=== PATIENT | male | born 1970 | race Caucasian/White ===

== ENCOUNTER 2019-07-28 11:34 | Emergency (ER) | payer OTHER ==
[~2019-07-28] VITALS: Ht 177.8 cm; Wt 186.5 kg
[~2019-07-28 11:34] MED LIST: AMLODIPINE5 MG PO; ARTIF TEARS OS; ATENOLOL50 MG PO; CIPRO500 MG OR; LACRI-LUBE OS; LORTAB 7.5 OR; LORTAB5 OR; MEDDOSEPAK OR; NO HOME MEDS; OMNICEF300 MG OR; PEPCID20 MG OR; PREDNISONE5 MG OR; SULFACETAMID10 % EX; ULTRAM50 M1 OR; ULTRAM50 M1 PO; ULTRAM50 MG OR; VALTREX1 GM OR
[2019-07-28] MEDS ORDERED: PROZAC20 MG PO (11:43)
[2019-07-28] MEDS ORDERED: LOSARTAN POTASS50 MG PO (11:43)
[2019-07-28 14:06] VITALS: BP 141/93
== END 2019-07-28 14:12 | disposition home or self-care (01) | DRG 563 ==
LOC: ED 11:34
DX: S86.912A Strain of unspecified muscle(s) and tendon(s) at lower leg level, left leg, initial encounter (principal); S70.02XA Contusion of left hip, initial encounter; I10 Essential (primary) hypertension; Y35.811A Legal intervention involving manhandling, law enforcement official injured, initial encounter; Y93.89 Activity, other specified; Y92.149 Unspecified place in prison as the place of occurrence of the external cause

== ENCOUNTER 2019-09-20 19:46 | Emergency (ER) | payer OTHER ==
[~2019-09-20] VITALS: Ht 177.8 cm; Wt 187.4 kg
[~2019-09-20 19:46] MED LIST changes: +LOSARTAN POTASS50 MG PO; +PROZAC20 MG PO
[2019-09-20 21:18] VITALS: BP 159/89
== END 2019-09-20 21:25 | disposition home or self-care (01) | DRG 305 ==
LOC: ED 19:46
DX: I10 Essential (primary) hypertension (principal)

== ENCOUNTER 2020-05-07 10:08 | Emergency (ER) | payer OTHER ==
[~2020-05-07] VITALS: Ht 177.8 cm; Wt 170.0 kg
[2020-05-07] MEDS ORDERED: METOPROL TAR25 MG PO (10:22)
[2020-05-07] MEDS ORDERED: MOTRIN800 MG PO ×2 (12:01)
[2020-05-07 12:14] VITALS: BP 131/77
== END 2020-05-07 12:14 | disposition home or self-care (01) | DRG 563 ==
LOC: ED 10:08
DX: S93.401A Sprain of unspecified ligament of right ankle, initial encounter (principal); I10 Essential (primary) hypertension; Y35.811A Legal intervention involving manhandling, law enforcement official injured, initial encounter; Y93.89 Activity, other specified; Y92.149 Unspecified place in prison as the place of occurrence of the external cause; Y99.0 Civilian activity done for income or pay

== ENCOUNTER 2020-06-22 12:55 | Emergency (ER) | payer OTHER ==
[~2020-06-22] VITALS: Ht 177.8 cm; Wt 170.4 kg
[~2020-06-22 12:55] MED LIST changes: +METOPROL TAR25 MG PO; +MOTRIN800 MG PO
[2020-06-22] MEDS ORDERED: CLEOCIN300 MG PO (15:39)
[2020-06-22] MEDS ORDERED: ERYTHROMYCIN O3.5 GM OD (15:39)
[2020-06-22 15:58] VITALS: BP 138/89
== END 2020-06-22 15:58 | disposition home or self-care (01) | DRG 125 ==
LOC: ED 12:55
DX: H10.9 Unspecified conjunctivitis (principal); L03.213 Periorbital cellulitis; I10 Essential (primary) hypertension

== ENCOUNTER 2020-06-27 11:20 | Emergency (ER) | payer OTHER ==
[~2020-06-27] VITALS: Ht 177.8 cm; Wt 155.0 kg
[~2020-06-27 11:20] MED LIST changes: +CLEOCIN300 MG PO; +ERYTHROMYCIN O3.5 GM OD
[2020-06-27] MEDS ORDERED: MEDDOSEPAK PO (12:14)
[2020-06-27] MEDS ORDERED: PATADAY0.2 % OU (12:14)
[2020-06-27 12:41] VITALS: BP 140/72
== END 2020-06-27 12:41 | disposition home or self-care (01) | DRG 916 ==
LOC: ED 11:20
DX: T78.3XXA Angioneurotic edema, initial encounter (principal); I10 Essential (primary) hypertension

== ENCOUNTER 2020-09-22 08:08 | Emergency (ER) | payer OTHER ==
[~2020-09-22] VITALS: Ht 177.8 cm; Wt 168.2 kg
[~2020-09-22 08:08] MED LIST changes: +MEDDOSEPAK PO; +PATADAY0.2 % OU
[2020-09-22] MEDS ORDERED: HYDROCHLOROT25 MG PO (08:55)
[2020-09-22 11:21] LABS: HEMATOCRIT 46.9 % (39.0-50.0); HEMOGLOBIN 15.3 g/dl (14.0-18.0); IMMATURE GRANULOCYTES 0.4 % (0.0-5.0); MEAN CELL VOLUME 95.5 fL CALC (80.0-100.0); MEAN CORPUSCULAR HGB 31.2 pG CALC (26.0-32.0); MEAN CORPUSCULAR HGB CONC 32.6 g/dL CAL (32.0-36.0); NEUT# 5.71 thou/uL (1.82-7.42); RED BLOOD COUNT 4.91 mill/uL (4.70-6.10); RED CELL DISTRI WIDTH 13.7 % (11.5-15.5)
[2020-09-22 11:29] LABS: ALBUMIN 4.1 g/dL (3.2-5.0); ALKALINE PHOSPHATASE 50 u/l (38-126); ANION GAP 13 (6-22 (CALC)); BILIRUBIN, TOTAL 0.8 mg/dL (0.0-1.4); BUN 17 mg/dL (9-20); BUN/CREATININE RATIO 16 (12-20 (CALC)); CARBON DIOXIDE 28 mmol/l (22-30); CHLORIDE 104 mmol/l (95-108); CREATININE 1.1 mg/dL (0.7-1.3); GFR > 60 ML/MIN (>=60 (CALC)); GFR FOR AFR.AMER. > 60 ML/MIN (>=60 (CALC)); LIPASE 130 u/l (23-300); POTASSIUM 4.9 mmol/l (3.5-5.1); SGOT/AST 35 u/l (17-59); SODIUM 139 mmol/l (137-146); TOTAL PROTEIN 7.4 g/dL (6.3-8.2)
[2020-09-22 12:36] LABS: ACT PARTIAL THROMBO TIME 26.6 SECONDS (20.0-32.5); INTERNATIONAL NORMALIZED RATIO 1.1 RATIO (0.7-1.3); PROTHROMBIN TIME 10.9 SECONDS (9.0-12.5)
[2020-09-22] MEDS ORDERED: HYDROCO/APAP1 TA9 PO (14:31)
[2020-09-22 15:01] VITALS: BP 119/71
== END 2020-09-22 15:08 | disposition home or self-care (01) | DRG 605 ==
LOC: ED 08:08
DX: S00.83XA Contusion of other part of head, initial encounter (principal); S80.01XA Contusion of right knee, initial encounter; R07.9 Chest pain, unspecified; R00.1 Bradycardia, unspecified; I10 Essential (primary) hypertension; V59.40XA Driver of pick-up truck or van injured in collision with unspecified motor vehicles in traffic accident, initial encounter

== ENCOUNTER 2020-10-03 17:53 | Emergency (ER) | payer OTHER ==
[~2020-10-03] VITALS: Ht 177.8 cm; Wt 170.5 kg
[~2020-10-03 17:53] MED LIST changes: +HYDROCHLOROT25 MG PO; +HYDROCO/APAP1 TA9 PO
[2020-10-03] MEDS ORDERED: IBUPROFEN600 MG PO (20:38)
[2020-10-03 21:00] VITALS: BP 124/68
== END 2020-10-03 21:00 | disposition home or self-care (01) | DRG 605 ==
LOC: ED 17:53
DX: S80.01XA Contusion of right knee, initial encounter (principal); M79.89 Other specified soft tissue disorders; I10 Essential (primary) hypertension; V89.2XXA Person injured in unspecified motor-vehicle accident, traffic, initial encounter

== ENCOUNTER 2020-11-24 17:02 | Emergency (ER) | payer OTHER ==
[~2020-11-24] VITALS: Ht 177.8 cm; Wt 170.0 kg
[~2020-11-24 17:02] MED LIST changes: +IBUPROFEN600 MG PO
[2020-11-24 19:35] VITALS: BP 143/82
== END 2020-11-24 19:35 | disposition home or self-care (01) | DRG 556 ==
LOC: ED 17:02
DX: M25.561 Pain in right knee (principal); I10 Essential (primary) hypertension